=== PATIENT | male | born 1970 | race Caucasian/White ===

== ENCOUNTER 2016-11-15 17:50 | Emergency (ER) | payer SELFPAY ==
[~2016-11-15] VITALS: Ht 172.7 cm; Wt 108.9 kg
[~2016-11-15 17:50] MED LIST: ASPIRIN ENTERIC81 M1 PO; ATIVAN1 MG PO; BACTRIM DS 8001 TA1 PO; BENTYL20 MG PO; BLEPH-10 15 ML15 ML OP; CIPROFLOXACIN500 MG PO; CLEOCIN150 MG PO; CLINDAMYCIN HC300 MG PO; CYCLOBENZAPRINE10 MG PO; DAYPRO600 M1 PO; FLEXERIL10 MG PO; FLONASE ALLERG9.9 ML NAS; HYDROCODONE BIT1 T11 PO; K-LOR 20MEQ20 ME1 PO; KEFLEX500 MG PO; LASIX40 MG PO; MEDROL DOSEPAK4 MG PO; MOBIC15 MG PO; MOTRIN800 MG PO; NEURONTIN300 MG PO; NITROSTAT0.4 MG SL; NKHM; NORFLEX100 MG PO; PEN-VEE K500 MG PO; PERCOCET 325 MG1 TA2 PO; PERCOCET 325 MG1 TA7 PO; PHENERGAN W/DM120 ML PO; PREDNICOT10 MG PO; PREDNICOT20 MG PO; PREDNISONE10 MG PO; PREDNISONE20 MG PO; ROBAXIN750 MG PO; ROBINUL FORTE2 MG PO; ROBITUSSIN AC 110 ML PO; TRAMADOL HCL50 MG PO; TRIMOX500 MG PO; TYLENOL ES500 MG PO; ULTRAM50 MG PO; VALIUM10 MG PO; VIBRAMYCIN100 MG PO; VICO10300 PO; VICODIN 5/500 505 MG PO; VICODIN 500 MG-1 TAB PO; VICODIN ES 7501 TAB PO; XANAX0.25 MG PO; XANAX0.5 MG PO; ZOFRAN ODT4 MG SL
== END 2016-11-15 18:44 | disposition home or self-care (01) ==
LOC: ED 17:50
DX: Z00.00 Encounter for general adult medical examination without abnormal findings (principal); G47.9 Sleep disorder, unspecified; Z88.6 Allergy status to analgesic agent; Z88.8 Allergy status to other drugs, medicaments and biological substances